=== PATIENT | male | born 1970 | race American Indian/Alaskan Native ===

== ENCOUNTER 2019-05-31 15:25 | Emergency (ER) | payer BC ==
[2019-05-31 15:39] VITALS: BP 139/90
[2019-05-31] MEDS ORDERED: NORCO 5/325 PO ONE (16:05)
[2019-05-31] MEDS ORDERED: IBUPROFEN PO ONE (16:05)
--- NOTE | 2019-05-31 16:06 | Event Note ---
ED Screening Note Date of service: 05/31/19 Time: 15:39 ED Screening Note: 49 y o male presents with dental pain to right lower teeth This initial assessment/diagnostic orders/clinical plan/treatment(s) is/are subject to change based on patients health status, clinical progression and re-assessment by fellow clinical providers in the ED. Further treatment and workup at subsequent clinical providers discretion. Patient/guardian urged not to elope from the ED as their condition may be serious if not clinically assessed and managed. Initial orders include: acc eval
--- NOTE | 2019-05-31 16:22 | Emergency Department Report ---
ED ENT HPI - General Chief complaint: Dental/Oral Stated complaint: TOOTHACHE Time Seen by Provider: 05/31/19 15:39 Source: patient Mode of arrival: Ambulatory Limitations: No Limitations - History of Present Illness Initial comments: 49-year-old male with a past medical history of hypertension presents to the hospital complaining of toothache times several days. Patient had a pain on the right lower mandible area feels better with massage. Pain rated 8/10 intensity, worse with percussion and palpation of the tooth. No fever or gum swelling noted. - Related Data Previous Rx's Medication Instructions Recorded Last Taken Type Ibuprofen [Motrin] 800 mg PO Q8HR PRN #30 tablet 05/31/19 Unknown Rx Penicillin Vk [Veetids TAB] 250 mg PO QID 7 Days tablet 05/31/19 Unknown Rx traMADol [Ultram 50 MG tab] 50 mg PO Q6HR PRN #20 tablet 05/31/19 Unknown Rx Allergies Allergy/AdvReac Type Severity Reaction Status Date / Time No Known Allergies Allergy Unverified 05/31/19 16:04 ED Dental HPI - General Chief complaint: Dental/Oral Stated complaint: TOOTHACHE Time Seen by Provider: 05/31/19 15:39 Source: patient Mode of arrival: Ambulatory Limitations: No Limitations - Related Data Previous Rx's Medication Instructions Recorded Last Taken Type Ibuprofen [Motrin] 800 mg PO Q8HR PRN #30 tablet 05/31/19 Unknown Rx Penicillin Vk [Veetids TAB] 250 mg PO QID 7 Days tablet 05/31/19 Unknown Rx traMADol [Ultram 50 MG tab] 50 mg PO Q6HR PRN #20 tablet 05/31/19 Unknown Rx Allergies Allergy/AdvReac Type Severity Reaction Status Date / Time No Known Allergies Allergy Unverified 05/31/19 16:04 ED Review of Systems ROS: Stated complaint: TOOTHACHE Other details as noted in HPI Comment: All other systems reviewed and negative ED Past Medical Hx - Past Medical History Previous Medical History?: Yes Hx Hypertension: Yes - Surgical History Past Surgical History?: Yes Additional Surgical History: Right hand fracture. hernia repair. tonsilectomy - Social History Smoking Status: Never Smoker - Medications Home Medications: Home Medications Medication Instructions Recorded Confirmed Last Taken Type Ibuprofen [Motrin] 800 mg PO Q8HR PRN #30 tablet 05/31/19 Unknown Rx Penicillin Vk [Veetids TAB] 250 mg PO QID 7 Days tablet 05/31/19 Unknown Rx traMADol [Ultram 50 MG tab] 50 mg PO Q6HR PRN #20 tablet 05/31/19 Unknown Rx ED Physical Exam - General Limitations: No Limitations - Other Other exam information: Normal: No acute distress Head: Atraumatic Eyes: Normal appearance, pupils equally reactive to light, extraocular movements intact ENT: Moist mucous membranes, pain to percussion of tooth #30 without noticeable facial swelling. No lymphadenopathy Neck: Normal appearance, no midline cervical tenderness, no meningismus Chest: Clear to auscultation bilaterally, no wheezes, rales, crackles Cardiovascular: Regular rate and rhythm Abdomen: Soft, nontender, nondistended, no rebound or guarding, normal bowel sounds Back: Normal inspection Extremity: Normal appearance, full range of motion Neuro: Alert and oriented 3, speech normal, no gross motor sensory deficit Psych: Appropriate Skin: No rash ED Course Vital Signs 05/31/19 05/31/19 15:37 16:14 Temperature 98.3 F Pulse Rate 92 H Respiratory 18 18 Rate Blood Pressure 139/90 O2 Sat by Pulse 96 Oximetry ED Medical Decision Making - Medical Decision Making Patient treated with pain medication and Antibiotics follow-up with dentist adv ised - Differential Diagnosis dental caries, dental abscess, dental infection Critical Care Time: No Critical care attestation.: If time is entered above; I have spent that time in minutes in the direct care of this critically ill patient, excluding procedure time. ED Disposition Clinical Impression: Toothache Disposition: DC- TO HOME OR SELFCARE Is pt being admited?: No Does the pt Need Aspirin: No Condition: Stable Instructions: Toothache (ED) Additional Instructions: Take your medications as prescribed. Follow-up with your doctor or the clinic/doctor provided. Return if symptoms worsen. Prescriptions: Ibuprofen [Motrin] 800 mg PO Q8HR PRN #30 tablet PRN Reason: Pain, Moderate (4-6) traMADol [Ultram 50 MG tab] 50 mg PO Q6HR PRN #20 tablet PRN Reason: Pain Penicillin Vk [Veetids TAB] 250 mg PO QID 7 Days tablet Referrals: [facility] [Outside] - 3-5 Days Time of Disposition: 16:22
== END 2019-05-31 16:46 | disposition home or self-care (01) ==
LOC: ED 15:25
DX: K08.89 Other specified disorders of teeth and supporting structures (principal); I10 Essential (primary) hypertension; Z90.89 Acquired absence of other organs; Z98.890 Other specified postprocedural states; Z79.899 Other long term (current) drug therapy